=== PATIENT | male | born 1960 | race Caucasian/White ===

== ENCOUNTER → 2020-08-19 17:59 | Outpatient (CLI) | payer MEDICARE, MEDICAID, SELFPAY ==
[2020-08-19 19:07] LABS: Alanine Aminotransferase 14 U/L (12-78); Albumin Level 4.3 g/dl (3.5-5.0); Albumin/Globulin Ratio 1.3 (1.1-1.8); Alkaline Phosphatase 63 U/L (38-126); Anion Gap 17.8 mEq/L (5-15); Aspartate Amino Transferase 16 U/L (17-59); Bilirubin,Total 0.5 mg/dl (0.2-1.3); Blood Urea Nitrogen 59 mg/dl (9-20); Calcium 9.1 mg/dl (8.4-10.2); Carbon Dioxide 25 mmol/L (22.0-30.0); Chloride 103 mmol/L (98-107); Chol/HDL Ratio 10.2 (1-3.5); Cholesterol 255 mg/dl (140-200); Estimated Glomerular Filt Rate 7 ml/min (>60); GFR (African American) 9 ML/MIN (>60); Globulin 3.2 g/dL (1.3-3.2); Glucose 90 mg/dl (74-100); HDL Cholesterol 25 mg/dl (40-60); Potassium 4.8 mmoL/L (3.5-5.1); Sodium 141 mmol/L (136-145); Total Protein,Serum 7.5 g/dl (6.3-8.2)
[2020-08-19 19:18] LABS: Direct LDL Cholesterol 62.67 mg/dL (100-129)
[2020-08-19 19:22] LABS: Triglycerides 600 mg/dl (30-150)
[2020-08-19 19:37] LABS: Thyroid Stimulating Hormone 3.35 uIU/mL (0.465-4.68)
== END ==
PROVIDERS: PCP Nurse Practitioner Family; Visit Provider Nurse Practitioner Family
DX: I10 Essential (primary) hypertension (principal); E78.5 Hyperlipidemia, unspecified
CPT/HCPCS: 80053; 80061; 84443